=== PATIENT | male | born 1995 | race Caucasian/White ===

== ENCOUNTER 2019-10-02 09:37 | Emergency (ER) | payer MEDICARE, MEDICAID ==
[2019-10-02 12:07] VITALS: BP 130/72
--- NOTE | 2019-10-07 18:20 | UC ---
Back Pain HPI - HPI Summary HPI Summary: 24 year old male with c/o back pain, L shoulder pain x 1.5 weeks. No trauma. NO fever, chills, no loss of bowel/ bladder function no prior occurences, no numbness, tingling. no weakness - History of Current Complaint Chief Complaint: UCBackPain Stated Complaint: LOWER BACK PAIN COUGH RUNNY NOSE Time Seen by Provider: 10/02/19 11:51 Hx Obtained From: Patient Onset/Duration: Gradual Onset, Lasting Weeks Timing: Constant Severity Initially: Moderate Severity Currently: Moderate Pain Intensity: 3 Pain Scale Used: 0-10 Numeric Back Pain: Is Discrete @ - lower back, left shoulder Aggravating Factor(s): Movement, Lifting, Bending Alleviating Factor(s): Rest Associated Signs And Symptoms: Negative: Swelling, Redness, Bruising, Fever, Weakness, Numbness, Tingling, Abdominal Pain, Flank Pain, Bladder Incontinence, Bowel Incontinence, Weight Loss, Pain with Weight Bearing - Allergies/Home Medications Allergies/Adverse Reactions: Allergies Allergy/AdvReac Type Severity Reaction Status Date / Time amoxicillin Allergy Intermediate Unknown Verified 10/02/19 10:11 Reaction Details Penicillins Allergy Intermediate Unknown Verified 10/02/19 10:11 Reaction Details PMH/Surg Hx/FS Hx/Imm Hx Previously Healthy: Yes - Surgical History Surgical History: None - Family History Known Family History: Positive: Non-Contributory - Social History Alcohol Use: None Substance Use Type: None Smoking Status (MU): Never Smoked Tobacco Review of Systems All Other Systems Reviewed And Are Negative: Yes Constitutional: Negative: Fever, Chills, Fatigue Skin: Positive: Negative Musculoskeletal: Positive: Arthralgia, Decreased ROM, Myalgia. Negative: Calf Tenderness Neurological: Positive: Negative Is Patient Immunocompromised?: Yes Physical Exam Triage Information Reviewed: Yes Vital Signs: Initial Vital Signs Temp 99.0 F 10/02/19 10:07 Pulse 80 10/02/19 10:07 Resp 18 10/02/19 10:07 BP 129/64 10/02/19 10:07 Pulse Ox 100 10/02/19 10:07 Vital Signs Reviewed: Yes Eyes: Positive: Conjunctiva Clear ENT: Positive: Hearing grossly normal Neck: Positive: Supple, Nontender, No Lymphadenopathy. Negative: Nuchal Rigidity, Enlarged Nodes @ Respiratory: Positive: Chest non-tender, Lungs clear, Normal breath sounds, No respiratory distress, No accessory muscle use. Negative: Crackles, Rhonchi, Stridor Cardiovascular: Positive: RRR, No Murmur Musculoskeletal: Positive: Other: - + df/pf bilaterally, strength intact b/l LEs. rad/ ulnar pulses 2+ RC testing + on L without weakness, + pain. SITLT b/l UE/ LE. Neurological: Positive: Alert, Muscle Tone Normal, Other: - patellar reflex 2+ b /l Skin: Positive: Other - n oopen wounds, sores. Negative: Rashes, Breakdown Back Pain Course/Dx - Course Course Of Treatment: Rotator cuff tendonitis, lower back strain - Naproxen: take 1 tablet every 12 hours with food for 3 days, then as needed to decrease pain and swelling - Rest as much as possible, ice as needed for pain on shoulder, lower back - Gentle stretching exercises as shown - Work note x 2 days - Follow up with orthopedics if no improvement in 2-3 days - Differential Dx/Diagnosis Differential Diagnosis/HQI/PQRI: Strain, Sprain Provider Diagnosis: Rotator cuff (capsule) sprain Discharge ED - Sign-Out/Discharge Documenting (check all that apply): Patient Departure All imaging exams completed and their final reports reviewed: No Studies - Discharge Plan Condition: Good Disposition: HOME Prescriptions: Naproxen [Naproxen 500 mg tab] 500 mg PO BID PRN #20 tablet.dr OLSEN Reason: Pain - Mild Patient Education Materials: Rotator Cuff Tendinitis (ED) Forms: *Work Release Referrals: [facility] [Outside] Kip Looney MD [Medical Doctor] - (3-5 days if no improvement of symptoms ) No Primary Care Phys,NOPCP [Primary Care Provider] - Additional Instructions: Rotator cuff tendonitis, lower back strain - Naproxen: take 1 tablet every 12 hours with food for 3 days, then as needed to decrease pain and swelling - Rest as much as possible, ice as needed for pain on shoulder, lower back - Gentle stretching exercises as shown - Work note x 2 days - Follow up with orthopedics if no improvement in 2-3 days - Billing Disposition and Condition Condition: GOOD Disposition: Home
== END 2019-10-02 12:28 | disposition home or self-care (01) ==
LOC: UCEAST 09:37
DX: S43.422A Sprain of left rotator cuff capsule, initial encounter (principal); Z88.0 Allergy status to penicillin; X58.XXXA Exposure to other specified factors, initial encounter; Y92.9 Unspecified place or not applicable
CPT/HCPCS: 99202; G0463

== ENCOUNTER 2019-10-22 00:43 | Emergency (ER) | payer OTHER, MEDICAID ==
--- NOTE | 2019-10-22 01:11 | ED ---
Psychiatric Complaint - HPI Summary HPI Summary: This patient is a 24 year old male on a 941 presenting to [facility] with a chief complaint of SI. Pt lives with her sister, they had an argument over something and were yelling at each other. When Pt stated he might as well kill himself, she called for the police. Pt reports he didn't really mean it, he just said it at the time out of anger. He has a Hx of PTSD and has an appointment with [facility] to manage this. - History Of Current Complaint Chief Complaint: EDMentalHealth Time Seen by Provider: 10/22/19 00:48 Hx Obtained From: Patient Onset/Duration: Resolved Aggravating Factor(s): Nothing - Allergies/Home Medications Allergies/Adverse Reactions: Allergies Allergy/AdvReac Type Severity Reaction Status Date / Time amoxicillin Allergy Intermediate Unknown Verified 10/22/19 00:48 Reaction Details Penicillins Allergy Intermediate Unknown Verified 10/22/19 00:48 Reaction Details PMH/Surg Hx/FS Hx/Imm Hx Endocrine/Hematology History: Denies: Hx Diabetes, Hx Thyroid Disease Cardiovascular History: Denies: Hx Hypertension Respiratory History: Denies: Hx Asthma, Hx Chronic Obstructive Pulmonary Disease (COPD) GI History: Denies: Hx Ulcer Infectious Disease History: No Infectious Disease History: Denies: Hx Hepatitis, Hx Human Immunodeficiency Virus (HIV), Traveled Outside the [place] in Last 30 Days - Family History Known Family History: Positive: Non-Contributory - Social History Alcohol Use: None Substance Use Type: Reports: None Smoking Status (MU): Never Smoked Tobacco Review of Systems Negative: Fever Negative: Other - Currently Denies SI, but is the chief complaint. All Other Systems Reviewed And Are Negative: Yes Physical Exam - Summary Physical Exam Summary: Appearance: Well-appearing, Well-nourished, lying in bed comfortably Skin: Warm, dry, no obvious rash Eyes: sclera anicteric, no conjunctival pallor ENT: mucous membranes moist, pharynx appears normal Neck: Supple, nontender Respiratory: Clear to auscultation, no signs of respiratory distress Cardiovascular: Normal S1, S2. No murmurs. Normal distal pulses in tibial and radial bilaterally. Abdomen: Soft, nontender, normal active bowel sounds present Musculoskeletal: Normal, Strength/ROM Intact Neurological: A&Ox3, awake and alert, mentation is normal, speech is fluent and appropriate Psychiatric: affect is normal, does not appear anxious or depressed Triage Information Reviewed: Yes Vital Signs On Initial Exam: Initial Vitals Temp Pulse Resp BP Pulse Ox 98.7 F 111 15 157/129 98 10/22/19 00:45 10/22/19 00:45 10/22/19 00:45 10/22/19 00:45 10/22/19 00:45 Vital Signs Reviewed: Yes Procedures - Sedation Patient Received Moderate/Deep Sedation with Procedure: No Diagnostics - Vital Signs Vital Signs Temp Pulse Resp BP Pulse Ox 10/22/19 00:45 98.7 F 111 15 157/129 98 - Laboratory Result Diagrams: 10/22/19 01:13 10/22/19 01:13 Lab Statement: Any lab studies that have been ordered have been reviewed, and results considered in the medical decision making process. Course/Dx - Course Course Of Treatment: This patient is a 24 year old male on a 941 presenting to [facility] with a chief complaint of SI. Pt lives with her sister, they had an argument over something and were yelling at each other. When Pt stated he might as well kill himself, she called for the police. Pt reports he didn't really mean it, he just said it at the time out of anger. Patient will be signed out to Dr. De Luna pending E at shift change 0700. - Differential Dx/Clinical Impression Provider Diagnosis: Adjustment disorder Discharge ED - Sign-Out/Discharge Documenting (check all that apply): Sign-Out Patient Signing out patient TO: Brenton De Luna - Discharge Plan Condition: Stable Disposition: HOME Forms: *Work Release Referrals: [facility] [Outside] - Billing Disposition and Condition Condition: STABLE Disposition: Home - Attestation Statements Document Initiated by Todibe: Yes Documenting Scribe: Quinten Ta Provider For Whom Skylar is Documenting (Include Credential): James Ramírez MD Scribe Attestation: IQuinten, scribed for James Ramírez MD on 10/22/19 at 2143. Scribe Documentation Reviewed: Yes Provider Attestation: The documentation as recorded by the Quinten melton accurately reflects the service I personally performed and the decisions made by me, James Ramírez MD Status of Scribe Document: Viewed
[2019-10-22 01:19] LABS: ABS Basophils 0.1 10^3/ul (0-0.2); ABS Eosinophils 0.2 10^3/ul (0-0.6); ABS Monocytes 0.9 10^3/ul (0-0.8); ABS Neutrophils 3.6 10^3/ul (1.5-7.7); Eosinophil % 3.4 %; Hematocrit 45 % (42-52); Hemoglobin 15.2 g/dL (14.0-18.0); Lymphocyte % 29.5 %; Mean Corpuscular HGB Conc 34 g/dL (31-36); Mean Corpuscular Hemoglobin 30 pg (27-31); Mean Corpuscular Volume 87 fL (80-94); Mean Platelet Volume 7.5 fL (7.4-10.4); Nucleated Red Blood Cells % 0.1; Platelet Count 288 10^3/uL (150-450); Red Blood Count 5.13 10^6 /uL (4.18-5.48); Red Cell Distribution Width 13 % (10-15); White Blood Count 6.7 10^3/uL (3.5-10.8)
[2019-10-22 01:25] LABS: Urine Appearance Clear; Urine Bilirubin Negative (Negative); Urine Blood Negative (Negative); Urine Color Yellow; Urine Glucose Negative (Negative); Urine Ketones Negative (Negative); Urine Nitrite Negative (Negative); Urine Protein Negative (Negative); Urine Specific Gravity 1.024 (1.010-1.030); Urine Urobilinogen Negative (Negative)
[2019-10-22 01:36] LABS: ALT 11 U/L (7-52); AST 14 U/L (13-39); Albumin 4.6 g/dL (3.2-5.2); Albumin/Globulin Ratio 2.1 (1-3); Alkaline Phosphatase 69 U/L (34-104); Anion Gap 4 mmol/L (2-11); BUN/Creatinine Ratio 15.1 (8-20); Blood Urea Nitrogen 16 mg/dL (6-24); CO2 Carbon Dioxide 26 mmol/L (22-32); Calcium 9.3 mg/dL (8.6-10.3); Chloride 106 mmol/L (101-111); EGFR African American 103.9 (>60); EGFR Non-African American 85.8 (>60); Globulin 2.2 g/dL (2-4); Glucose 99 mg/dL (70-100); Potassium 3.5 mmol/L (3.5-5.0); Sodium 136 mmol/L (135-145); Total Protein 6.8 g/dL (6.4-8.9)
[2019-10-22 01:40] LABS: Urine Benzodiazepine Screen None Detected (None Detect); Urine Opiates Screen None Detected (None Detect)
[2019-10-22 02:13] LABS: Acetaminophen < 15 mcg/mL; Alcohol < 10 mg/dL (<10); Salicylate < 2.50 mg/dL (<30)
[2019-10-22 02:28] LABS: TSH (Thyroid Stimulating Horm) 4.44 mcIU/mL (0.34-5.60)
--- NOTE | 2019-10-22 07:08 | ED ---
Progress - Progress Note Progress Note: This pt was a sign out from Dr. Ramírez to Dr. De Luna at shift change on 10/22/19 at 0700 pending mental health evaluation. Course/Dx - Diagnoses Provider Diagnoses: Verbalizes suicidal thoughts Discharge ED - Sign-Out/Discharge Documenting (check all that apply): Receiving Sign-Out Receiving patient FROM: James Ramírez - Discharge Plan Condition: Stable Referrals: No Primary Care Phys,NOPCP [Primary Care Provider] - - Attestation Statements Document Initiated by Scribe: Yes Documenting Scribe: Imani Crisostomo Provider For Whom Scribe is Documenting (Include Credential): Brenton De Luna MD Scribe Attestation: I, Imani Crisostomo, scribed for Brenton De Luna MD on 10/22/19 at 0707. Status of Scribe Document: Viewed
[2019-10-22 09:42] VITALS: BP 147/72
--- NOTE | 2019-10-22 10:11 | ED ---
Progress - Progress Note Progress Note: This pt was a sign out from Dr. Ramírez to Dr. De Luna at shift change on 10/22/19 at 0700 pending mental health evaluation. Re-Evaluation - Re-Evaluation First Eval Re-Evaluation Time: 10:08 Comment: Dr. Birmingham, psychiatrist, reports pt will be discharged home. Course/Dx - Course Course Of Treatment: Patient was received as a sign out from Dr. Ramírez pending MHE. Patient had a mental health evaluation and his case was reviewed by Dr. Birmingham, psychiatrist. Dr. Birmingham reports patient will be discharged home with an outpatient follow up with dx adjustment disorder. - Diagnoses Provider Diagnoses: Adjustment disorder Discharge ED - Sign-Out/Discharge Documenting (check all that apply): Patient Departure - Discharge home, Receiving Sign-Out Receiving patient FROM: James Ramírez - Discharge Plan Condition: Stable Disposition: HOME Forms: *Work Release Referrals: [facility] [Outside] - Billing Disposition and Condition Condition: STABLE Disposition: Home - Attestation Statements Document Initiated by Scribe: Yes Documenting Scribe: Imani Crisostomo Provider For Whom Skylar is Documenting (Include Credential): Brenton De Luna MD Scribe Attestation: Imani Ball scribed for Brenton De Luna MD on 10/22/19 at 1836. Scribe Documentation Reviewed: Yes Provider Attestation: The documentation as recorded by the Imani melton accurately reflects the service I personally performed and the decisions made by me, Brenton De Luna MD Status of Scribe Document: Viewed
== END 2019-10-22 10:50 | disposition home or self-care (01) ==
LOC: ED 00:43
DX: F43.20 Adjustment disorder, unspecified (principal); R45.851 Suicidal ideations; Z88.0 Allergy status to penicillin
CPT/HCPCS: 36415; 80053; 80307; 80320; 80329; 81003; 84443; 85025; 99284; G0480